=== PATIENT | female | born 1975 | race Caucasian/White ===

== ENCOUNTER → 2025-01-03 20:37 | Outpatient (REF) | payer OTHER, SELFPAY | LOC: MRI 20:37 | PROVIDERS: ATTENDING PHYSICIAN Nurse Practitioner Family; FAMILY PHYSICIAN Family Medicine | DX: M54.2 Cervicalgia (principal) | CPT/HCPCS: 72141 ==

== ENCOUNTER → 2025-05-02 12:27 | Outpatient (REF) | payer OTHER, SELFPAY | LOC: HWWDC 12:27 | PROVIDERS: ATTENDING PHYSICIAN Nurse Practitioner Family; REFERRING PHYSICIAN Nurse Practitioner Obstetrics & Gynecology | DX: Z12.31 Encounter for screening mammogram for malignant neoplasm of breast (principal) | CPT/HCPCS: 77063; 77067 ==

== ENCOUNTER → 2025-09-28 09:00 | Outpatient (REF) | payer OTHER, SELFPAY | LOC: WDC 09:00 | PROVIDERS: ATTENDING PHYSICIAN Nurse Practitioner Family | DX: R92.2 Inconclusive mammogram (principal) | CPT/HCPCS: 76641 ==